=== PATIENT | female | born 1975 | race Caucasian/White ===

== ENCOUNTER → 2025-01-14 | Outpatient (BNVA) | payer MEDICAID, SELFPAY | END | disposition home or self-care (01) | PROVIDERS: Visit Provider Urology | DX: N20.0 Calculus of kidney (principal); K76.9 Liver disease, unspecified; Z87.440 Personal history of urinary (tract) infections | CPT/HCPCS: 81003; 99203; G0463 ==

== ENCOUNTER → 2025-07-23 | Outpatient (BNVA) | payer MEDICAID, SELFPAY | END | disposition home or self-care (01) | PROVIDERS: Visit Provider Urology | DX: R10.20 Pelvic and perineal pain unspecified side (principal); N20.0 Calculus of kidney | CPT/HCPCS: 81003; 99213; G0463 ==